=== PATIENT | male | born 1995 | race Caucasian/White ===

== ENCOUNTER 2017-12-27 23:47 | Emergency (ER) | payer OTHER ==
--- NOTE | 2017-12-28 00:01 | EDPHY ---
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 Patient states he landed on the concrete. He sustained an abrasion. He has been having pain in his medial knee with ambulation since. No prior injuries. Also sustained some abrasions to his left hand. He did not hit his head. No loss of consciousness. ROS: 10 systems were reviewed and were negative except those elements noted in the HPI. PMH: Denies Social History: No smoking, no alcohol, no recreational drug use Family History: non-contributory Physical Exam: Gen: Awake, Alert, Airway Intact HEENT: Head: Atraumatic Eyes: PERRLA, EOMI Nose: No epistaxis Mouth: Normal dentition, Airway patent Face: No deformity Ext: Patient has an abrasion with mild swelling and soft tissue tenderness over the medial aspect of his proximal right tibia just at the plateau. There is no deep tissue injury. He has full flexion extension. There is no pain with loading of his medial or lateral collateral ligaments. He is a negative anterior drawer sign. Is no patellar tenderness or abnormality. No distal injury. Left hand. He has abrasions over his 4th and 5th knuckles without any bony tenderness or deformity. Skin: no rash Neuro: CN II-XII intact, Strength 5/5 in all extremities, sensation intact in all extremities - Personal History Current Tetanus/Diphtheria Vaccine: Yes Current Tetanus Diphtheria and Acellular Pertussis (TDAP): Yes - Medical/Surgical History Hx Asthma: No Hx Chronic Respiratory Disease: No Hx Diabetes: No Hx Cardiac Disease: No Hx Renal Disease: No Hx Cirrhosis: No Hx Alcoholism: No Hx HIV/AIDS: No Hx Splenectomy or Spleen Trauma: No Other PMH: fx r wrist/lr inguinal hernia, L collar bone fx - Social History Smoking Status: Never smoked Constitutional: Initial Vital Signs Temperature (C) 36.7 C 12/27/17 23:50 Heart Rate 90 12/27/17 23:50 Respiratory Rate 16 12/27/17 23:50 Blood Pressure 136/89 H 12/27/17 23:50 O2 Sat (%) 94 12/27/17 23:50 O2 Delivery Mode Room Air Allergies/Adverse Reactions: Sulfa (Sulfonamide Antibiotics) Allergy (Verified 12/27/17 23:52) Home Medications: Medication Instructions Recorded NK [No Known Home Meds] 09/22/17 Medical Decision Making - Diagnostics Imaging Results: Knee x-rays negative per my interpretation. Imaging: I viewed and interpreted images myself ED Course/Re-evaluation: 22-year-old male with a knee injury status post fall. I do not appreciate a fracture on his x-ray. Abrasions having clean. Will discharge with follow up with workman's Comp. Departure - Departure Disposition: Home, Routine, Self-Care Clinical Impression: Knee abrasion, Hand abrasion, Knee contusion Condition: Good Instructions: Abrasion (ED), Contusion in Adults (ED), Knee Pain (ED) Additional Instructions: Take ibuprofen, 600 mg every 8 hr. You may alternate with acetaminophen, 1000 mg every 8 hr. Apply ice for 15 min of every hour while awake. Follow up with workman's Comp in 2-3 days for re-evaluation. Return to the emergency department for increasing pain, swelling, difficulty walking, or any other concerns. Referrals: Work Comp Referral [facility] [Outside] - As per Instructions
[2017-12-28] MEDS ORDERED: IBUPROFEN 600 MG TAB PO ONE (00:31)
[2017-12-28 00:45] VITALS: BP 151/81
== END 2017-12-28 00:46 | disposition home or self-care (01) ==
DX: S80.211A Abrasion, right knee, initial encounter (principal); S60.512A Abrasion of left hand, initial encounter; Z87.81 Personal history of (healed) traumatic fracture; Y35.811A Legal intervention involving manhandling, law enforcement official injured, initial encounter; Y99.0 Civilian activity done for income or pay

== ENCOUNTER 2018-04-21 | Emergency (ER) | payer OTHER ==
[2018-04-21 00:08] VITALS: BP 129/91
--- NOTE | 2018-04-21 00:25 | EDPHY ---
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 Patient's [place] reports that another officer also had an itchy red spot on the arm after contacting the coat. Patient put hydrocortisone on the hands prior to arrival and reports significant improvement. He has mild swelling to both hands with no open blisters, lymphangitis, or signs of severe allergic reaction. I encouraged close monitoring, [id number] medications, warning signs return to ED sooner outlined and discharge. 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 Patient's Ricky reports that the swelling was quite severe. Patient covered his hands and hydrocortisone lotion and notes that his symptoms have improved. Apparently another officer contacted the suspect code with his forearm and there was a red itchy area. 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 PHYSICAL EXAM: General Appearance: Alert, oriented, appropriate, cooperative, NAD, well hydrated, non-toxic appearing, VSS, no hypoxia. Respiratory: There are no retractions, lungs are clear to auscultation. Cardiac: Regular rate and rhythm, no murmurs or gallops. Skin: Mild bilateral erythema to the palms of both hands. No significant swelling appreciated. Distal neurovascular exam intact. No blisters. No lymphangitis. MEDICAL DECISION MAKING: Patient was seen independently. Secondary supervising physician at time of evaluation was: Dr. Lobato Diagnosis: Mild allergic reaction. New, requires workup Summary: See Assessment and Plan for summary of ED visit Patient Progress: Improved. (José Luis Nunez) PHYSICIAN DOCUMENTATION: The patient was evaluated and managed by the [employer] Manager. My co- signature indicates that I have reviewed this chart and I agree with the findings and plan of care as documented. I am the secondary supervising physician. (Gisela Lobato) - Objective Vital Signs: Initial Vital Signs Temperature (C) 36.3 C 04/21/18 00:04 Blood Pressure 129/91 H 04/21/18 00:04 Allergies/Adverse Reactions: Sulfa (Sulfonamide Antibiotics) Allergy (Verified 04/21/18 00:04) Home Medications: Medication Instructions Recorded NK [No Known Home Meds] 09/22/17 Departure - Departure Disposition: Home, Routine, Self-Care Clinical Impression: Allergic reaction Qualifiers: Encounter type: initial encounter Qualified Code(s): T78.40XA - Allergy, unspecified, initial encounter Condition: Good Instructions: General Allergic Reaction (ED) Additional Instructions: DISCHARGE INSTRUCTIONS FROM YOUR DOCTOR Thank you for visiting our emergency department today. Please keep in mind that discharge from the emergency department does not mean that there is nothing wrong - it simply means that we have not identified an emergency condition that requires further evaluation or treatment in the hospital. You should always plan to follow up with primary care for re-evaluation of your condition in the next 2-3 days. If you have been referred to a specialist, please call as soon as possible (today or tomorrow) to schedule your follow up appointment at the appropriate time. CONSIDER USING BENADRYL OR JORDAN OR ZYRTEC FOR ITCHING. USE COOL WATER TO WASH YOUR HANDS. USE HYDROCORTISONE CREAM ON ONLY ON THE MOST ITCHY AREAS. RETURN TO THE EMERGENCY DEPARTMENT FOR INCREASED SWELLING, PAIN, REDNESS, RED STREAKS GOING UP THE ARMS, CHEST PAIN, SHORTNESS OF BREATH OR DIFFICULTY BREATHING, OR ANY OTHER CONCERNS. People present with illnesses and injuries in different ways, and it is always possible that we have missed something. You may always return for re-evaluation if symptoms worsen or if they are not improving or if you develop new/different symptoms. Again, thank you for choosing our emergency department. We hope that you feel better. Referrals: NONE *PRIMARY CARE P,. [Primary Care Provider] - As per Instructions
== END 2018-04-21 00:50 | disposition home or self-care (01) ==
DX: M79.89 Other specified soft tissue disorders (principal); T78.40XA Allergy, unspecified, initial encounter

== ENCOUNTER 2018-05-11 22:36 | Emergency (ER) | payer OTHER | END 2018-05-12 00:41 | disposition home or self-care (01) ==